=== PATIENT | female | born 1965 | race Caucasian/White ===

== ENCOUNTER 2017-10-13 13:48 | Emergency (ER) | payer OTHER, SELFPAY ==
[2017-10-13] VITALS (9 sets, daily range): BP systolic 174–233; BP diastolic 97–126; PULSE 67–96; RESP 12–20; TEMP 36.7–37.4; O2SAT 97–99
--- NOTE | 2017-10-13 14:30 | ED.GENADULT ---
HPI - General Adult <TATUM Bacon - Last Filed: 10/13/17 18:55> General Chief complaint: Hypertension Stated complaint: HIGH BP AND HEADACHES Time Seen by Provider: 10/13/17 14:10 Source: patient and family Mode of arrival: ambulatory Limitations: no limitations History of Present Illness HPI narrative: Patient presents with chief complaint of headache and high blood pressure. She has had a headache for the past week to 10 days on the left side of her head. She called her insurance nurse line, who suggested they take her blood pressure. She found it to be high and then came into the emergency department. Upon arrival blood pressure is 230s/130s. Eleven headache, she denies any dizziness, lightheadedness blurred vision, slurred speech confusion or stroke symptoms. She complains of occasional palpitations, but states that is not new. She denies any chest pain, swelling of her extremities, syncope or near syncope. She does state that she smokes every day and drinks a few alcoholic drinks every day. She does admit to psychosocial stress given that her son is currently addicted to heroin. Related Data Previous Rx's Medication Instructions Recorded metoprolol tartrate 25 mg PO BID #30 tab 10/13/17 Allergies Allergy/AdvReac Type Severity Reaction Status Date / Time antibiotic AdvReac Uncoded 10/13/17 15:05 Review of Systems <TATUM Bacon - Last Filed: 10/13/17 18:55> Review of Systems GENERAL: Denies chills, fatigue, malaise, fever, sweats. HEENT: Denies sinus pain, ear pain, sore throat, difficulty swallowing, dizziness. RESPIRATORY: Denies dyspnea, cough, wheezing, hemoptysis, sputum. CARDIOVASCULAR: Denies chest pain, palpitations, orthopnea, edema, GASTROINTESTINAL: Denies nausea, vomiting, abdominal pain, diarrhea, constipation, melena. : Denies dysuria, frequency, incontinence, hematuria, urinary retention. MUSCULOSKELETAL: denies weakness, joint pain, or bony pain SKIN: Denies rash, skin lesions, or other NEUROLOGIC: See HPI PSYCHIATRIC: No concerning psychosocial issues. 12 point review of systems is negative except for those stated above Exam <TATUM Bacon - Last Filed: 10/13/17 18:55> Narrative Exam Narrative: GENERAL: Well-nourished patient sitting in bed with at bedside. HEAD: Atraumatic. Normocephalic. No temporal or scalp tenderness. EYES: Pupils equal round and reactive. Extraocular motions intact. No scleral icterus. No injection or drainage. ENT: Nose without bleeding, purulent drainage or septal hematoma. Throat without erythema, tonsillar hypertrophy or exudate. Uvula midline. Airway patent. NECK: Trachea midline. No JVD or lymphadenopathy. Supple, nontender, no meningeal signs. CARDIOVASCULAR: Regular rate and rhythm without murmurs, gallops, or rubs. RESPIRATORY: Clear to auscultation. Breath sounds equal bilaterally. No wheezes, rales, or rhonchi. GASTROINTESTINAL: Abdomen soft, non-tender, nondistended. No hepato-splenomegaly, or palpable masses. No guarding. EXTREMITIES: No clubbing, cyanosis, or edema. No joint tenderness, effusion, or edema noted. BACK: Nontender without deformity or crepitance. No flank tenderness. NEURO: AOx3, speech is not slurred, stable gait, equal strength upper and lower extremities bilaterally. SKIN: No rash or erythema. Initial Vital Signs Initial Vital Signs: Vital Signs Temperature 99.4 F 10/13/17 14:02 Pulse Rate 93 H 10/13/17 14:02 Respiratory Rate 20 10/13/17 14:02 Blood Pressure 233/126 H 10/13/17 14:02 Pulse Oximetry 97 10/13/17 14:02 <Thien Ferreira DO - Last Filed: 10/14/17 09:27> Initial Vital Signs Initial Vital Signs: Vital Signs Temperature 99.4 F 10/13/17 14:02 Pulse Rate 93 H 10/13/17 14:02 Respiratory Rate 20 10/13/17 14:02 Blood Pressure 233/126 H 10/13/17 14:02 Pulse Oximetry 97 10/13/17 14:02 Course <TATUM Bacon - Last Filed: 10/13/17 18:55> Additional Information: A checked on the patient several times throughout her stay in the emergency department. She received 2 doses of IV metoprolol as well as IV labetalol. Once her blood pressure came down well with the IV labetalol, she was given p.o. metoprolol. She denied any stroke or heart attack symptoms or other stay. She had lab work completed. She had a head CT performed. Orders Ordered: Discontinued Medications Hydralazine HCl (Apresoline) 10 mg IV NOW ONE Stop: 10/13/17 16:10 Last Admin: 10/13/17 16:23 Dose: Hydrochlorothiazide (Hydrochlorothiazide) 25 mg PO NOW ONE Stop: 10/13/17 17:48 Sodium Chloride (Normal Saline 0.9%) 1,000 mls @ 1,000 mls/hr IV BOLUS ONE Stop: 10/13/17 15:40 Last Admin: 10/13/17 15:05 Dose: 1,000 mls/hr Ketorolac Tromethamine (Toradol) 30 mg IV NOW ONE Stop: 10/13/17 16:12 Last Admin: 10/13/17 16:25 Dose: 30 mg Labetalol HCl (Normodyne) 20 mg IV NOW ONE Stop: 10/13/17 16:20 Last Admin: 10/13/17 16:24 Dose: 20 mg Metoprolol Tartrate (Lopressor) 5 mg IV NOW ONE Stop: 10/13/17 14:44 Last Admin: 10/13/17 15:05 Dose: 5 mg Metoprolol Tartrate (Lopressor) 5 mg IV NOW ONE Stop: 10/13/17 15:40 Last Admin: 10/13/17 16:11 Dose: 5 mg Metoprolol Tartrate (Lopressor) 50 mg PO NOW ONE Stop: 10/13/17 17:02 Last Admin: 10/13/17 17:09 Dose: 50 mg Vital Signs - 8 hr 10/13/17 14:02 10/13/17 14:28 10/13/17 14:48 Temperature 99.4 F Pulse Rate 93 H 93 H 96 H Respiratory Rate 20 15 14 Blood Pressure 233/126 H Blood Pressure [Left Arm] 180/111 H 195/100 H Pulse Oximetry 97 98 97 10/13/17 15:55 10/13/17 15:57 10/13/17 16:17 Temperature 99.4 F Pulse Rate 75 75 74 Respiratory Rate 17 17 12 Blood Pressure 233/126 H Blood Pressure [Left Arm] 175/102 H 200/103 H Pulse Oximetry 99 99 98 10/13/17 16:34 10/13/17 17:05 10/13/17 18:08 Temperature 98.0 F Pulse Rate 73 75 67 Respiratory Rate 19 19 16 Blood Pressure Blood Pressure [Left Arm] 181/108 H 174/97 H 186/108 H Pulse Oximetry 98 97 97 <Thien Ferreira DO - Last Filed: 10/14/17 09:27> Orders Ordered: Discontinued Medications Hydralazine HCl (Apresoline) 10 mg IV NOW ONE Stop: 10/13/17 16:10 Last Admin: 10/13/17 16:23 Dose: Hydrochlorothiazide (Hydrochlorothiazide) 25 mg PO NOW ONE Stop: 10/13/17 17:48 Sodium Chloride (Normal Saline 0.9%) 1,000 mls @ 1,000 mls/hr IV BOLUS ONE Stop: 10/13/17 15:40 Last Admin: 10/13/17 15:05 Dose: 1,000 mls/hr Ketorolac Tromethamine (Toradol) 30 mg IV NOW ONE Stop: 10/13/17 16:12 Last Admin: 10/13/17 16:25 Dose: 30 mg Labetalol HCl (Normodyne) 20 mg IV NOW ONE Stop: 10/13/17 16:20 Last Admin: 10/13/17 16:24 Dose: 20 mg Metoprolol Tartrate (Lopressor) 5 mg IV NOW ONE Stop: 10/13/17 14:44 Last Admin: 10/13/17 15:05 Dose: 5 mg Metoprolol Tartrate (Lopressor) 5 mg IV NOW ONE Stop: 10/13/17 15:40 Last Admin: 10/13/17 16:11 Dose: 5 mg Metoprolol Tartrate (Lopressor) 50 mg PO NOW ONE Stop: 10/13/17 17:02 Last Admin: 10/13/17 17:09 Dose: 50 mg Vital Signs - 8 hr 10/13/17 14:02 10/13/17 14:28 10/13/17 14:48 Temperature 99.4 F Pulse Rate 93 H 93 H 96 H Respiratory Rate 20 15 14 Blood Pressure 233/126 H Blood Pressure [Left Arm] 180/111 H 195/100 H Pulse Oximetry 97 98 97 10/13/17 15:55 10/13/17 15:57 10/13/17 16:17 Temperature 99.4 F Pulse Rate 75 75 74 Respiratory Rate 17 17 12 Blood Pressure 233/126 H Blood Pressure [Left Arm] 175/102 H 200/103 H Pulse Oximetry 99 99 98 10/13/17 16:34 10/13/17 17:05 10/13/17 18:08 Temperature 98.0 F Pulse Rate 73 75 67 Respiratory Rate 19 19 16 Blood Pressure Blood Pressure [Left Arm] 181/108 H 174/97 H 186/108 H Pulse Oximetry 98 97 97 Medical Decision Making <Stephanie Manuel, [employer] - Last Filed: 10/13/17 18:55> MDM Narrative Medical decision making narrative: Patient presented with hypertension. She was treated with 2 doses of 5 mg of IV metoprolol. She was given 10 of labetalol IV. Her blood pressure was noted to decrease from 230s/130s to 190s/ 100-110. She no longer had a headache after her blood pressure was decreased and some Toradol. Given that her blood pressure dropped the ideal 15-20%, I did not want to become more aggressive regarding her blood pressure in the emergency department setting. Given that she is asymptomatic, I discharged her home on p.o. metoprolol. I instructed her to call her primary care physician tomorrow for follow-up. I also gave strict return precautions to the emergency department for any chest pain, shortness of breath, palpitations, stroke symptoms or further headache. Patient had no questions or concerns upon discharge. Lab Data Result diagrams: 10/13/17 14:15 10/13/17 14:15 Lab Results 10/13/17 10/13/17 10/13/17 Range/Units 14:15 14:15 14:15 WBC 10.7 (4.5-11.0) X10^3/uL RBC 4.85 (4.0-5.2) X10^6/uL Hgb 16.4 H (12.0-16.0) g/dL Hct 46.5 H (36-46) % MCV 95.9 (80-100) fL MCH 33.7 (26-34) PG MCHC 35.2 (30-36) % RDW 13.1 (11.6-14.8) % Plt Count 256 (150-400) X10^3/uL Neut % (Auto) 50.0 (50-75) % Lymph % (Auto) 37.9 (25-40) % Bucks % (Auto) 8.7 (3-14) % Eos % (Auto) 2.8 (2-4) % Baso % (Auto) 0.6 (0-2) % Neut # (Auto) 5300 (8082-7146) /uL PT 10.4 (10.1-12.7) SECONDS INR 1.0 (0.9-1.3) Sodium 141 (137-145) mmol/L Potassium 3.9 (3.4-5.1) mmol/L Chloride 102 (98-107) mmol/L Carbon Dioxide 29 (22-32) mmol/L BUN 14 (7-17) mg/dL Creatinine 0.70 (0.52-1.04) mg/dL Estimated GFR > 60.0 (>60) mL/min BUN/Creatinine Ratio 20.0 (6-22) Glucose 109 H (70-100) mg/dL Calcium 9.9 (8.4-10.2) mg/dL Total Bilirubin 0.5 (0.2-1.3) mg/dL AST 61 H (14-36) IU/L ALT 111 H (9-52) IU/L Alkaline Phosphatase 114 (38-126) U/L Total Creatine Kinase (30-135) U/L Troponin I (0.01-0.034) ng/mL Total Protein 7.9 (6.3-8.2) g/dL Albumin 4.6 (3.5-5.0) g/dL Globulin 3.3 (1.7-4.1) g/dL Albumin/Globulin Ratio 1.4 (1.0-2.8) /02/18 Range/Units 14:15 WBC (4.5-11.0) X10^3/uL RBC (4.0-5.2) X10^6/uL Hgb (12.0-16.0) g/dL Hct (36-46) % MCV (80-100) fL MCH (26-34) PG MCHC (30-36) % RDW (11.6-14.8) % Plt Count (150-400) X10^3/uL Neut % (Auto) (50-75) % Lymph % (Auto) (25-40) % Bucks % (Auto) (3-14) % Eos % (Auto) (2-4) % Baso % (Auto) (0-2) % Neut # (Auto) (1072-5045) /uL PT (10.1-12.7) SECONDS INR (0.9-1.3) Sodium (137-145) mmol/L Potassium (3.4-5.1) mmol/L Chloride (98-107) mmol/L Carbon Dioxide (22-32) mmol/L BUN (7-17) mg/dL Creatinine (0.52-1.04) mg/dL Estimated GFR (>60) mL/min BUN/Creatinine Ratio (6-22) Glucose (70-100) mg/dL Calcium (8.4-10.2) mg/dL Total Bilirubin (0.2-1.3) mg/dL AST (14-36) IU/L ALT (9-52) IU/L Alkaline Phosphatase (38-126) U/L Total Creatine Kinase 63 (30-135) U/L Troponin I < 0.012 (0.01-0.034) ng/mL Total Protein (6.3-8.2) g/dL Albumin (3.5-5.0) g/dL Globulin (1.7-4.1) g/dL Albumin/Globulin Ratio (1.0-2.8) Imaging Data CT scan - head: Radiologist's impression: View Report History Print [address] [address] [address] Scan Report Signed Patient: Radha Mcgee MR#: [id number] : 1965 Acct:[id number] Age/Sex: 52 / F Date of Service: 10/13/17 Loc: ED Accession Number: [id number] Procedure: CT head/brain wo con Ordering Provider: Stephanie [facility]: CT HEAD/BRAIN WO CON INDICATIONS: headache, htnsive TECHNIQUE: Noncontrast 4.5 mm thick angled axial sections acquired from the foramen magnum to the vertex, with coronal and sagittal reformats. For radiation dose reduction, the following was used: automated exposure control, adjustment of mA and/or kV according to patient size. COMPARISON: [facility], CT, CT-IVP, 04/12/2008, 11:06. FINDINGS: Image quality: Excellent. CSF spaces: Basal cisterns are patent. No extra-axial fluid collections. Ventricles are normal in size and shape. Brain: No midline shift. No intracranial masses or hemorrhage. Arreola-white matter interface is normal. Skull and face: Calvarium and visualized facial bones are intact, without suspicious lesions. Sinuses: Mastoid air cells are clear. Minimal paranasal sinus mucosal thickening. IMPRESSION: No acute intracranial abnormality. Dictated by: Vipin Ohara M.D. on 10/13/2017 at 15:37 Approved by: Vipin Ohara M.D. on 10/13/2017 at 15:41 ECG Data Attestation: I personally reviewed and interpreted this ECG as follows: Interpretation: Sinus rhythm. Ventricular rate 99. Noted to have PVC. No ST elevation or depression. <Thien Ferreira DO - Last Filed: 10/14/17 09:27> Lab Data Lab Results 10/13/17 10/13/17 10/13/17 Range/Units 14:15 14:15 14:15 WBC 10.7 (4.5-11.0) X10^3/uL RBC 4.85 (4.0-5.2) X10^6/uL Hgb 16.4 H (12.0-16.0) g/dL Hct 46.5 H (36-46) % MCV 95.9 (80-100) fL MCH 33.7 (26-34) PG MCHC 35.2 (30-36) % RDW 13.1 (11.6-14.8) % Plt Count 256 (150-400) X10^3/uL Neut % (Auto) 50.0 (50-75) % Lymph % (Auto) 37.9 (25-40) % Bucks % (Auto) 8.7 (3-14) % Eos % (Auto) 2.8 (2-4) % Baso % (Auto) 0.6 (0-2) % Neut # (Auto) 5300 (2230-2687) /uL PT 10.4 (10.1-12.7) SECONDS INR 1.0 (0.9-1.3) Sodium 141 (137-145) mmol/L Potassium 3.9 (3.4-5.1) mmol/L Chloride 102 (98-107) mmol/L Carbon Dioxide 29 (22-32) mmol/L BUN 14 (7-17) mg/dL Creatinine 0.70 (0.52-1.04) mg/dL Estimated GFR > 60.0 (>60) mL/min BUN/Creatinine Ratio 20.0 (6-22) Glucose 109 H (70-100) mg/dL Calcium 9.9 (8.4-10.2) mg/dL Total Bilirubin 0.5 (0.2-1.3) mg/dL AST 61 H (14-36) IU/L ALT 111 H (9-52) IU/L Alkaline Phosphatase 114 (38-126) U/L Total Creatine Kinase (30-135) U/L Troponin I (0.01-0.034) ng/mL Total Protein 7.9 (6.3-8.2) g/dL Albumin 4.6 (3.5-5.0) g/dL Globulin 3.3 (1.7-4.1) g/dL Albumin/Globulin Ratio 1.4 (1.0-2.8) 10/13/17 Range/Units 14:15 WBC (4.5-11.0) X10^3/uL RBC (4.0-5.2) X10^6/uL Hgb (12.0-16.0) g/dL Hct (36-46) % MCV (80-100) fL MCH (26-34) PG MCHC (30-36) % RDW (11.6-14.8) % Plt Count (150-400) X10^3/uL Neut % (Auto) (50-75) % Lymph % (Auto) (25-40) % Bucks % (Auto) (3-14) % Eos % (Auto) (2-4) % Baso % (Auto) (0-2) % Neut # (Auto) (0806-3842) /uL PT (10.1-12.7) SECONDS INR (0.9-1.3) Sodium (137-145) mmol/L Potassium (3.4-5.1) mmol/L Chloride (98-107) mmol/L Carbon Dioxide (22-32) mmol/L BUN (7-17) mg/dL Creatinine (0.52-1.04) mg/dL Estimated GFR (>60) mL/min BUN/Creatinine Ratio (6-22) Glucose (70-100) mg/dL Calcium (8.4-10.2) mg/dL Total Bilirubin (0.2-1.3) mg/dL AST (14-36) IU/L ALT (9-52) IU/L Alkaline Phosphatase (38-126) U/L Total Creatine Kinase 63 (30-135) U/L Troponin I < 0.012 (0.01-0.034) ng/mL Total Protein (6.3-8.2) g/dL Albumin (3.5-5.0) g/dL Globulin (1.7-4.1) g/dL Albumin/Globulin Ratio (1.0-2.8) Discharge Plan Departure Patient Disposition: Home, Self-Care Clinical Impression: Hypertension Discharge Date/Time: 10/13/17 18:32 Interventions: ED Discharge Assessment Last Done: 10/13/17 18:32 Instructions: DI for High Blood Pressure Activity Restrictions/Additional Instructions: I am starting you on a blood pressure medication twice a day. Come back to the emergency department given the chest pain shortness of breath or stroke symptoms including confusion or slurred speech. I would like you to follow up with primary doctor tomorrow. Come back to the emergency department if you need 2. Prescriptions: New metoprolol tartrate 25 mg tablet 25 mg PO BID Qty: 30 RF: 0 Referrals: Silvano Apple MD [Primary Care Provider] - Stand Alone Forms: Work/School Restrictions <Thien Ferreira DO - Last Filed: 10/14/17 09:27> [facility] ED Attending Michael Attestation: I was immediately available in the department for consultation. Documentation has been reviewed. I agree with assessment and plan.
--- NOTE | 2017-10-13 14:39 | DI.CT.S_ITS ---
PROCEDURE: CT HEAD/BRAIN WO CON INDICATIONS: headache, htnsive TECHNIQUE: Noncontrast 4.5 mm thick angled axial sections acquired from the foramen magnum to the vertex, with coronal and sagittal reformats. For radiation dose reduction, the following was used: automated exposure control, adjustment of mA and/or kV according to patient size. COMPARISON: [facility], CT, CT-IVP, 04/12/2008, 11:06. FINDINGS: Image quality: Excellent. CSF spaces: Basal cisterns are patent. No extra-axial fluid collections. Ventricles are normal in size and shape. Brain: No midline shift. No intracranial masses or hemorrhage. Arreola-white matter interface is normal. Skull and face: Calvarium and visualized facial bones are intact, without suspicious lesions. Sinuses: Mastoid air cells are clear. Minimal paranasal sinus mucosal thickening. IMPRESSION: No acute intracranial abnormality. Dictated by: Vipin Ohara M.D. on 10/13/2017 at 15:37 Approved by: Vipin Ohara M.D. on 10/13/2017 at 15:41
[2017-10-13 14:50] LABS: Add Manual Diff / Slide Review NO; Basophils Percent Auto 0.6 % (0-2); Eosinophils Percent Auto 2.8 % (2-4); Hematocrit 46.5 % (36-46); Hemoglobin 16.4 g/dL (12.0-16.0); Lymphocytes Percent Auto 37.9 % (25-40); Mean Corpuscular HGB Conc 35.2 % (30-36); Mean Corpuscular Hemoglobin 33.7 PG (26-34); Mean Corpuscular Volume 95.9 fL (80-100); Monocytes Percent Auto 8.7 % (3-14); Neutrophils Absolute Auto 5300 /uL (3000-5900); Platelet Count 256 X10^3/uL (150-400); Prothrombin Time 10.4 SECONDS (10.1-12.7); Red Blood Cell Count 4.85 X10^6/uL (4.0-5.2); Red Cell Distribution Width 13.1 % (11.6-14.8); White Blood Cell Count 10.7 X10^3/uL (4.5-11.0)
[2017-10-13 14:56] LABS: Creatine Kinase 63 U/L (30-135)
[2017-10-13 14:58] LABS: Alanine Aminotransferase 111 IU/L (9-52); Albumin 4.6 g/dL (3.5-5.0); Albumin Globulin Ratio 1.4 (1.0-2.8); Alkaline Phosphatase 114 U/L (38-126); Aspartate Aminotransferase 61 IU/L (14-36); Bilirubin Total 0.5 mg/dL (0.2-1.3); Blood Urea Nitrogen 14 mg/dL (7-17); Calcium 9.9 mg/dL (8.4-10.2); Carbon Dioxide 29 mmol/L (22-32); Chloride 102 mmol/L (98-107); Estimated Glomerular Filt Rate > 60.0 mL/min (>60); Globulin 3.3 g/dL (1.7-4.1); Glucose 109 mg/dL (70-100); HEMOLYSIS 30 (0-50); Potassium 3.9 mmol/L (3.4-5.1); Sodium 141 mmol/L (137-145); Total Protein 7.9 g/dL (6.3-8.2)
[2017-10-13] MEDS: METOPROLOL TARTRATE 5 MG/5 ML INJ IV ×2 (15:05→16:11)
[2017-10-13] MEDS: SODIUM CHLORIDE 0.9% 1,000 ML 1000 ML IV (15:05)
[2017-10-13 15:10] LABS: Troponin I < 0.012 ng/mL (0.01-0.034)
--- NOTE | 2017-10-13 16:02 | PC.NURSE ---
Pt states Left sided DAMIAN 3/10 pain since 10/04/17, took one Aspirin today, called nurse line who told her to take bp and had an elevated reading. Pt states may have HTN but has never been prescribed medication for it. Denies CP or SOB.
[2017-10-13] MEDS: LABETALOL 100 MG/20ML MDV 20 MG IV (16:24)
[2017-10-13] MEDS: KETOROLAC 60 MG/2 ML VIAL 30 MG IV (16:25)
[2017-10-13] MEDS: METOPROLOL 50 MG TABLET PO (17:09)
--- NOTE | 2017-10-13 18:05 | ED_ITS ---
HPI - General Adult <TATUM Bacon - Last Filed: 10/13/17 18:55> General Chief complaint: Hypertension Stated complaint: HIGH BP AND HEADACHES Time Seen by Provider: 10/13/17 14:10 Source: patient and family Mode of arrival: ambulatory Limitations: no limitations History of Present Illness HPI narrative: Patient presents with chief complaint of headache and high blood pressure. She has had a headache for the past week to 10 days on the left side of her head. She called her insurance nurse line, who suggested they take her blood pressure. She found it to be high and then came into the emergency department. Upon arrival blood pressure is 230s/130s. Eleven headache, she denies any dizziness, lightheadedness blurred vision, slurred speech confusion or stroke symptoms. She complains of occasional palpitations, but states that is not new. She denies any chest pain, swelling of her extremities, syncope or near syncope. She does state that she smokes every day and drinks a few alcoholic drinks every day. She does admit to psychosocial stress given that her son is currently addicted to heroin. Related Data Previous Rx's Medication Instructions Recorded metoprolol tartrate 25 mg PO BID #30 tab 10/13/17 Allergies Allergy/AdvReac Type Severity Reaction Status Date / Time antibiotic AdvReac Uncoded 10/13/17 15:05 Review of Systems <TATUM Bacon - Last Filed: 10/13/17 18:55> Review of Systems GENERAL: Denies chills, fatigue, malaise, fever, sweats. HEENT: Denies sinus pain, ear pain, sore throat, difficulty swallowing, dizziness. RESPIRATORY: Denies dyspnea, cough, wheezing, hemoptysis, sputum. CARDIOVASCULAR: Denies chest pain, palpitations, orthopnea, edema, GASTROINTESTINAL: Denies nausea, vomiting, abdominal pain, diarrhea, constipation, melena. : Denies dysuria, frequency, incontinence, hematuria, urinary retention. MUSCULOSKELETAL: denies weakness, joint pain, or bony pain SKIN: Denies rash, skin lesions, or other NEUROLOGIC: See HPI PSYCHIATRIC: No concerning psychosocial issues. 12 point review of systems is negative except for those stated above Exam <TATUM Bacon - Last Filed: 10/13/17 18:55> Narrative Exam Narrative: GENERAL: Well-nourished patient sitting in bed with at bedside. HEAD: Atraumatic. Normocephalic. No temporal or scalp tenderness. EYES: Pupils equal round and reactive. Extraocular motions intact. No scleral icterus. No injection or drainage. ENT: Nose without bleeding, purulent drainage or septal hematoma. Throat without erythema, tonsillar hypertrophy or exudate. Uvula midline. Airway patent. NECK: Trachea midline. No JVD or lymphadenopathy. Supple, nontender, no meningeal signs. CARDIOVASCULAR: Regular rate and rhythm without murmurs, gallops, or rubs. RESPIRATORY: Clear to auscultation. Breath sounds equal bilaterally. No wheezes , rales, or rhonchi. GASTROINTESTINAL: Abdomen soft, non-tender, nondistended. No hepato-splenomegaly , or palpable masses. No guarding. EXTREMITIES: No clubbing, cyanosis, or edema. No joint tenderness, effusion, or edema noted. BACK: Nontender without deformity or crepitance. No flank tenderness. NEURO: AOx3, speech is not slurred, stable gait, equal strength upper and lower extremities bilaterally. SKIN: No rash or erythema. Initial Vital Signs Initial Vital Signs: Vital Signs Temperature 99.4 F 10/13/17 14:02 Pulse Rate 93 H 10/13/17 14:02 Respiratory Rate 20 10/13/17 14:02 Blood Pressure 233/126 H 10/13/17 14:02 Pulse Oximetry 97 10/13/17 14:02 <Thien Ferreira DO - Last Filed: 10/14/17 09:27> Initial Vital Signs Initial Vital Signs: Vital Signs Temperature 99.4 F 10/13/17 14:02 Pulse Rate 93 H 10/13/17 14:02 Respiratory Rate 20 10/13/17 14:02 Blood Pressure 233/126 H 10/13/17 14:02 Pulse Oximetry 97 10/13/17 14:02 Course <TATUM Bacon - Last Filed: 10/13/17 18:55> Additional Information: A checked on the patient several times throughout her stay in the emergency department. She received 2 doses of IV metoprolol as well as IV labetalol. Once her blood pressure came down well with the IV labetalol, she was given p.o. metoprolol. She denied any stroke or heart attack symptoms or other stay. She had lab work completed. She had a head CT performed. Orders Ordered: Discontinued Medications Hydralazine HCl (Apresoline) 10 mg IV NOW ONE Stop: 10/13/17 16:10 Last Admin: 10/13/17 16:23 Dose: Hydrochlorothiazide (Hydrochlorothiazide) 25 mg PO NOW ONE Stop: 10/13/17 17:48 Sodium Chloride (Normal Saline 0.9%) 1,000 mls @ 1,000 mls/hr IV BOLUS ONE Stop: 10/13/17 15:40 Last Admin: 10/13/17 15:05 Dose: 1,000 mls/hr Ketorolac Tromethamine (Toradol) 30 mg IV NOW ONE Stop: 10/13/17 16:12 Last Admin: 10/13/17 16:25 Dose: 30 mg Labetalol HCl (Normodyne) 20 mg IV NOW ONE Stop: 10/13/17 16:20 Last Admin: 10/13/17 16:24 Dose: 20 mg Metoprolol Tartrate (Lopressor) 5 mg IV NOW ONE Stop: 10/13/17 14:44 Last Admin: 10/13/17 15:05 Dose: 5 mg Metoprolol Tartrate (Lopressor) 5 mg IV NOW ONE Stop: 10/13/17 15:40 Last Admin: 10/13/17 16:11 Dose: 5 mg Metoprolol Tartrate (Lopressor) 50 mg PO NOW ONE Stop: 10/13/17 17:02 Last Admin: 10/13/17 17:09 Dose: 50 mg Vital Signs - 8 hr 10/13/17 14:02 10/13/17 14:28 10/13/17 14:48 Temperature 99.4 F Pulse Rate 93 H 93 H 96 H Respiratory Rate 20 15 14 Blood Pressure 233/126 H Blood Pressure [Left Arm] 180/111 H 195/100 H Pulse Oximetry 97 98 97 10/13/17 15:55 10/13/17 15:57 10/13/17 16:17 Temperature 99.4 F Pulse Rate 75 75 74 Respiratory Rate 17 17 12 Blood Pressure 233/126 H Blood Pressure [Left Arm] 175/102 H 200/103 H Pulse Oximetry 99 99 98 10/13/17 16:34 10/13/17 17:05 10/13/17 18:08 Temperature 98.0 F Pulse Rate 73 75 67 Respiratory Rate 19 19 16 Blood Pressure Blood Pressure [Left Arm] 181/108 H 174/97 H 186/108 H Pulse Oximetry 98 97 97 <Thien Ferreira DO - Last Filed: 10/14/17 09:27> Orders Ordered: Discontinued Medications Hydralazine HCl (Apresoline) 10 mg IV NOW ONE Stop: 10/13/17 16:10 Last Admin: 10/13/17 16:23 Dose: Hydrochlorothiazide (Hydrochlorothiazide) 25 mg PO NOW ONE Stop: 10/13/17 17:48 Sodium Chloride (Normal Saline 0.9%) 1,000 mls @ 1,000 mls/hr IV BOLUS ONE Stop: 10/13/17 15:40 Last Admin: 10/13/17 15:05 Dose: 1,000 mls/hr Ketorolac Tromethamine (Toradol) 30 mg IV NOW ONE Stop: 10/13/17 16:12 Last Admin: 10/13/17 16:25 Dose: 30 mg Labetalol HCl (Normodyne) 20 mg IV NOW ONE Stop: 10/13/17 16:20 Last Admin: 10/13/17 16:24 Dose: 20 mg Metoprolol Tartrate (Lopressor) 5 mg IV NOW ONE Stop: 10/13/17 14:44 Last Admin: 10/13/17 15:05 Dose: 5 mg Metoprolol Tartrate (Lopressor) 5 mg IV NOW ONE Stop: 10/13/17 15:40 Last Admin: 10/13/17 16:11 Dose: 5 mg Metoprolol Tartrate (Lopressor) 50 mg PO NOW ONE Stop: 10/13/17 17:02 Last Admin: 10/13/17 17:09 Dose: 50 mg Vital Signs - 8 hr 10/13/17 14:02 10/13/17 14:28 10/13/17 14:48 Temperature 99.4 F Pulse Rate 93 H 93 H 96 H Respiratory Rate 20 15 14 Blood Pressure 233/126 H Blood Pressure [Left Arm] 180/111 H 195/100 H Pulse Oximetry 97 98 97 10/13/17 15:55 10/13/17 15:57 10/13/17 16:17 Temperature 99.4 F Pulse Rate 75 75 74 Respiratory Rate 17 17 12 Blood Pressure 233/126 H Blood Pressure [Left Arm] 175/102 H 200/103 H Pulse Oximetry 99 99 98 10/13/17 16:34 10/13/17 17:05 10/13/17 18:08 Temperature 98.0 F Pulse Rate 73 75 67 Respiratory Rate 19 19 16 Blood Pressure Blood Pressure [Left Arm] 181/108 H 174/97 H 186/108 H Pulse Oximetry 98 97 97 Medical Decision Making <Stephanie Manuel, AP PROCESSOR-BC - Last Filed: 10/13/17 18:55> MDM Narrative Medical decision making narrative: Patient presented with hypertension. She was treated with 2 doses of 5 mg of IV metoprolol. She was given 10 of labetalol IV. Her blood pressure was noted to decrease from 230s/130s to 190s/ 100-110. She no longer had a headache after her blood pressure was decreased and some Toradol. Given that her blood pressure dropped the ideal 15-20%, I did not want to become more aggressive regarding her blood pressure in the emergency department setting. Given that she is asymptomatic, I discharged her home on p.o. metoprolol. I instructed her to call her primary care physician tomorrow for follow-up. I also gave strict return precautions to the emergency department for any chest pain, shortness of breath, palpitations, stroke symptoms or further headache. Patient had no questions or concerns upon discharge. Lab Data Result diagrams: 10/13/17 14:15 10/13/17 14:15 Lab Results 10/13/17 10/13/17 10/13/17 Range/Units 14:15 14:15 14:15 WBC 10.7 (4.5-11.0) X10^3/uL RBC 4.85 (4.0-5.2) X10^6/uL Hgb 16.4 H (12.0-16.0) g/dL Hct 46.5 H (36-46) % MCV 95.9 (80-100) fL MCH 33.7 (26-34) PG MCHC 35.2 (30-36) % RDW 13.1 (11.6-14.8) % Plt Count 256 (150-400) X10^3/uL Neut % (Auto) 50.0 (50-75) % Lymph % (Auto) 37.9 (25-40) % [place] % (Auto) 8.7 (3-14) % Eos % (Auto) 2.8 (2-4) % Baso % (Auto) 0.6 (0-2) % Neut # (Auto) 5300 (2346-6302) /uL PT 10.4 (10.1-12.7) SECONDS INR 1.0 (0.9-1.3) Sodium 141 (137-145) mmol/L Potassium 3.9 (3.4-5.1) mmol/L Chloride 102 (98-107) mmol/L Carbon Dioxide 29 (22-32) mmol/L BUN 14 (7-17) mg/dL Creatinine 0.70 (0.52-1.04) mg/dL Estimated GFR > 60.0 (>60) mL/min BUN/Creatinine Ratio 20.0 (6-22) Glucose 109 H (70-100) mg/dL Calcium 9.9 (8.4-10.2) mg/dL Total Bilirubin 0.5 (0.2-1.3) mg/dL AST 61 H (14-36) IU/L ALT 111 H (9-52) IU/L Alkaline Phosphatase 114 (38-126) U/L Total Creatine Kinase (30-135) U/L Troponin I (0.01-0.034) ng/mL Total Protein 7.9 (6.3-8.2) g/dL Albumin 4.6 (3.5-5.0) g/dL Globulin 3.3 (1.7-4.1) g/dL Albumin/Globulin Ratio 1.4 (1.0-2.8) /02/18 Range/Units 14:15 WBC (4.5-11.0) X10^3/uL RBC (4.0-5.2) X10^6/uL Hgb (12.0-16.0) g/dL Hct (36-46) % MCV (80-100) fL MCH (26-34) PG MCHC (30-36) % RDW (11.6-14.8) % Plt Count (150-400) X10^3/uL Neut % (Auto) (50-75) % Lymph % (Auto) (25-40) % [place] % (Auto) (3-14) % Eos % (Auto) (2-4) % Baso % (Auto) (0-2) % Neut # (Auto) (8511-1112) /uL PT (10.1-12.7) SECONDS INR (0.9-1.3) Sodium (137-145) mmol/L Potassium (3.4-5.1) mmol/L Chloride (98-107) mmol/L Carbon Dioxide (22-32) mmol/L BUN (7-17) mg/dL Creatinine (0.52-1.04) mg/dL Estimated GFR (>60) mL/min BUN/Creatinine Ratio (6-22) Glucose (70-100) mg/dL Calcium (8.4-10.2) mg/dL Total Bilirubin (0.2-1.3) mg/dL AST (14-36) IU/L ALT (9-52) IU/L Alkaline Phosphatase (38-126) U/L Total Creatine Kinase 63 (30-135) U/L Troponin I < 0.012 (0.01-0.034) ng/mL Total Protein (6.3-8.2) g/dL Albumin (3.5-5.0) g/dL Globulin (1.7-4.1) g/dL Albumin/Globulin Ratio (1.0-2.8) Imaging Data CT scan - head: Radiologist's impression: View Report History Print [address] [id number] [address] Scan Report Signed Patient: Radha Mcgee MR#: [id number] : 1965 Acct:[id number] Age/Sex: 52 / F Date of Service: 10/13/17 Loc: ED Accession Number: [id number] Procedure: CT head/brain wo con Ordering Provider: Stephanie Manuel [facility] PROC[facility]: CT HEAD/BRAIN WO CON INDICATIONS: headache, htnsive TECHNIQUE: Noncontrast 4.5 mm thick angled axial sections acquired from the foramen magnum to the vertex, with coronal and sagittal reformats. For radiation dose reduction, the following was used: automated exposure control, adjustment of mA and/or kV according to patient size. COMPARISON: [facility], CT, CT-IVP, 04/12/2008, 11:06. FINDINGS: Image quality: Excellent. CSF spaces: Basal cisterns are patent. No extra-axial fluid collections. Ventricles are normal in size and shape. Brain: No midline shift. No intracranial masses or hemorrhage. [place]reola-white matter interface is normal. Skull and face: Calvarium and visualized facial bones are intact, without suspicious lesions. Sinuses: Mastoid air cells are clear. Minimal paranasal sinus mucosal thickening. IMPRESSION: No acute intracranial abnormality. Dictated by: Vipin Ohara M.D. on 10/13/2017 at 15:37 Approved by: Vipin Ohara M.D. on 10/13/2017 at 15:41 ECG Data Attestation: I personally reviewed and interpreted this ECG as follows: Interpretation: Sinus rhythm. Ventricular rate 99. Noted to have PVC. No ST elevation or depression. <Thien Ferreira DO - Last Filed: 10/14/17 09:27> Lab Data Lab Results 10/13/17 10/13/17 10/13/17 Range/Units 14:15 14:15 14:15 WBC 10.7 (4.5-11.0) X10^3/uL RBC 4.85 (4.0-5.2) X10^6/uL Hgb 16.4 H (12.0-16.0) g/dL Hct 46.5 H (36-46) % MCV 95.9 (80-100) fL MCH 33.7 (26-34) PG MCHC 35.2 (30-36) % RDW 13.1 (11.6-14.8) % Plt Count 256 (150-400) X10^3/uL Neut % (Auto) 50.0 (50-75) % Lymph % (Auto) 37.9 (25-40) % [place] % (Auto) 8.7 (3-14) % Eos % (Auto) 2.8 (2-4) % Baso % (Auto) 0.6 (0-2) % Neut # (Auto) 5300 (7453-6470) /uL PT 10.4 (10.1-12.7) SECONDS INR 1.0 (0.9-1.3) Sodium 141 (137-145) mmol/L Potassium 3.9 (3.4-5.1) mmol/L Chloride 102 (98-107) mmol/L Carbon Dioxide 29 (22-32) mmol/L BUN 14 (7-17) mg/dL Creatinine 0.70 (0.52-1.04) mg/dL Estimated GFR > 60.0 (>60) mL/min BUN/Creatinine Ratio 20.0 (6-22) Glucose 109 H (70-100) mg/dL Calcium 9.9 (8.4-10.2) mg/dL Total Bilirubin 0.5 (0.2-1.3) mg/dL AST 61 H (14-36) IU/L ALT 111 H (9-52) IU/L Alkaline Phosphatase 114 (38-126) U/L Total Creatine Kinase (30-135) U/L Troponin I (0.01-0.034) ng/mL Total Protein 7.9 (6.3-8.2) g/dL Albumin 4.6 (3.5-5.0) g/dL Globulin 3.3 (1.7-4.1) g/dL Albumin/Globulin Ratio 1.4 (1.0-2.8) 10/13/17 Range/Units 14:15 WBC (4.5-11.0) X10^3/uL RBC (4.0-5.2) X10^6/uL Hgb (12.0-16.0) g/dL Hct (36-46) % MCV (80-100) fL MCH (26-34) PG MCHC (30-36) % RDW (11.6-14.8) % Plt Count (150-400) X10^3/uL Neut % (Auto) (50-75) % Lymph % (Auto) (25-40) % [place] % (Auto) (3-14) % Eos % (Auto) (2-4) % Baso % (Auto) (0-2) % Neut # (Auto) (1084-1099) /uL PT (10.1-12.7) SECONDS INR (0.9-1.3) Sodium (137-145) mmol/L Potassium (3.4-5.1) mmol/L Chloride (98-107) mmol/L Carbon Dioxide (22-32) mmol/L BUN (7-17) mg/dL Creatinine (0.52-1.04) mg/dL Estimated GFR (>60) mL/min BUN/Creatinine Ratio (6-22) Glucose (70-100) mg/dL Calcium (8.4-10.2) mg/dL Total Bilirubin (0.2-1.3) mg/dL AST (14-36) IU/L ALT (9-52) IU/L Alkaline Phosphatase (38-126) U/L Total Creatine Kinase 63 (30-135) U/L Troponin I < 0.012 (0.01-0.034) ng/mL Total Protein (6.3-8.2) g/dL Albumin (3.5-5.0) g/dL Globulin (1.7-4.1) g/dL Albumin/Globulin Ratio (1.0-2.8) Discharge Plan Departure Patient Disposition: Home, Self-Care Clinical Impression: Hypertension Discharge Date/Time: 10/13/17 18:32 Interventions: ED Discharge Assessment Last Done: 10/13/17 18:32 Instructions: DI for High Blood Pressure Activity Restrictions/Additional Instructions: I am starting you on a blood pressure medication twice a day. Come back to the emergency department given the chest pain shortness of breath or stroke symptoms including confusion or slurred speech. I would like you to follow up with primary doctor tomorrow. Come back to the emergency department if you need 2. Prescriptions: New metoprolol tartrate 25 mg tablet 25 mg PO BID Qty: 30 RF: 0 Referrals: Silvano Apple MD [Primary Care Provider] - Stand Alone Forms: Work/School Restrictions <Thien Ferreira DO - Last Filed: 10/14/17 09:27> [facility] ED Attending Michael Attestation: I was immediately available in the department for consultation. Documentation has been reviewed. I agree with assessment and plan.
== END 2017-10-13 18:32 | disposition home or self-care (01) ==
PROVIDERS: Emergency Provider Nurse Practitioner Family; Family Provider Family Medicine; PCP Family Medicine
DX: I10 Essential (primary) hypertension (principal); R51 Headache
CPT/HCPCS: 36591; 70450; 80053; 82550; 82553; 84484; 85025; 85610; 93005; 93010; 93041; 96361; 96374; 96375; 96376; 99284; 99285; J1885

== ENCOUNTER 2019-02-20 13:58 | Day surgery (SDC) | payer OTHER, SELFPAY ==
--- NOTE | 2019-02-20 07:43 | PM.OP.ENDO ---
Operative Date/Time/Diagnoses Date of procedure: 02/20/19 Time of procedure: 14:38 Pre-op diagnosis: 1. Family history of colon polyps 2. Colon cancer screening 3. Uncontrolled hypertension, ASA Class 3 Post-op diagnosis: other (1. Normal colonoscopy) Procedure & Clinicians Study performed: Colonoscopy Same procedure as scheduled: Yes Indications: 1. Family history of colon polyps 2. Screening for colon cancer 3. Uncontrolled hypertension, ASA class 3 Surgeon: Latasha Mcmanus Procedure Notes SCOAP/Timeout: 14:47 Procedure in detail: ENDOSCOPIST: Latasha Mcmanus MD Sedation RN: Cheo Rdz RN Sedation start time: 14:48 Sedation end time: 15;17 PROCEDURE: Colonoscopy INDICATIONS: 1. Family history of colon polyps 2. Screening for colon cancer 3. Hypertension, much improved today after taking home medications, 141/95. MEDICATION: Levsin 0.125 mg sublingual, incremental doses of Versed and fentanyl until appropriate level sedation achieved. ASA CLASS: 3 CECAL WITHDRAWAL TIME: COMPLICATIONS: None. EXTENT OF PROCEDURE: Cecum. QUALITY OF PREP: Good with portions of liquid stool. PROCEDURE: Prior to insertion of the colonoscope, a digital rectal examination was accomplished with circumferential palpation of the distal rectal mucosa without significant findings being noted. The high-definition colonoscope was passed into the rectum in the usual fashion and advanced over to the cecum without difficulty. The ileocecal valve, appendiceal stoma, and medial wall all could be inspected and no abnormalities were seen. ASCENDING COLON: As the colonoscope was withdrawn, care was taken to expose and inspect the haustral folds and no abnormalities were seen. HEPATIC FLEXURE: Normal no polyps, diverticula or other abnormalities. TRANSVERSE COLON: Normal no polyps, diverticula or other abnormalities. DESCENDING COLON: Normal no polyps, diverticula or other abnormalities. SIGMOID COLON: Normal no polyps, diverticula or other abnormalities. RECTUM: Normal. J maneuver was produced. There was no significant perianal disease. The J maneuver was broken. The remainder of the rectum was inspected and there was no external hemorrhoid disease. The scope was withdrawn. IMPRESSION: 1. Normal colonoscopy PLAN: 1. Secondary to family history, repeat colonoscopy in 5 years. The possibility of a missed lesion including a malignancy has been discussed with the patient previously. Potential alarm symptoms have been discussed and should be reported immediately. Scope withdrawal time: 7 minutes Sedation minutes: 20 Specimen(s): none sent Complications: none Impression: Normal colonoscopy Post-procedure Recommendations: Colonscopy in 5 years Follow up: as needed Disposition: PACU
[2019-02-20 14:30] VITALS: BMI 32.0
[2019-02-20 14:34] VITALS: BP 141/95; PULSE 107; RESP 18; TEMP 36; O2SAT 97
[2019-02-20] MEDS: SODIUM CHLORIDE 0.9% 1,000 ML 200 ML IV (14:42)
[2019-02-20] MEDS: fentaNYL 250 MCG/5 ML INJ IV (15:21)
[2019-02-20] MEDS: MIDAZOLAM 5 MG/5 ML VIAL IV (15:21)
[2019-02-20 15:25] VITALS: BP 115/74; PULSE 92; RESP 16; TEMP 36.6; O2SAT 98
--- NOTE | 2019-02-20 15:28 | SUR.PHASEII ---
Drive through, pt on monitor till 30 minute brittani. Wide awake and sitting straight up talking with OR nurse Cheo.
[2019-02-20 15:29] VITALS: PULSE 87; RESP 14; O2SAT 97
--- NOTE | 2019-02-20 15:38 | SUR.PHASEII ---
Stable phase 2, report to Arnulfo.
[2019-02-20 15:43] VITALS: BP 109/79; PULSE 84; RESP 16; TEMP 36.4; O2SAT 97
== END 2019-02-20 16:03 | disposition home or self-care (01) ==
PROVIDERS: Family Provider Family Medicine; PCP Family Medicine; Visit Provider Student in an Organized Health Care Education/Training Program
PROC: 0DJD8ZZ Inspection of Lower Intestinal Tract, Via Natural or Artificial Opening Endoscopic (ICD-10-PCS; CPT 45378; principal; 2019-02-20 15:00)
DX: Z12.11 Encounter for screening for malignant neoplasm of colon (principal); I10 Essential (primary) hypertension
CPT/HCPCS: 45378; J2250; J3010

== ENCOUNTER 2019-06-02 11:01 | Emergency (ER) | payer OTHER, SELFPAY ==
[2019-06-02 11:10] VITALS: BP 225/105; PULSE 83; RESP 13; TEMP 36.4; O2SAT 98
--- NOTE | 2019-06-02 11:12 | DI.RAD.S_ITS ---
PROCEDURE: XR RIBS RT MIN 3V W CXR 1V INDICATIONS: right right pain after cough. TECHNIQUE: 2 views of the right ribs were acquired, along with a single view chest. COMPARISON: None. FINDINGS: Surgical changes and devices: None. Bones and chest wall: No fractures or dislocations. No suspicious bony lesions. Overlying soft tissues appear unremarkable. Lungs and pleura: No pleural effusions or pneumothorax. Lungs appear clear. Mediastinum: Mediastinal contours appear normal. Heart size is normal. IMPRESSION: No displaced rib fractures visualized. Dictated by: Briana Martin M.D. on 06/02/2019 at 12:03 Approved by: Briana Martin M.D. on 06/02/2019 at 12:04
--- NOTE | 2019-06-02 11:17 | ED.CHESTPAIN ---
HPI - Chest Pain <VIDYA Bacon-BC - Last Filed: 06/02/19 15:28> General Chief Complaint: Chest Pain Stated Complaint: PAIN/NUMBNESS IN RIBS Time Seen by Provider: 06/02/19 11:12 Source: patient Mode of arrival: Ambulatory Limitations: no limitations History of Present Illness HPI narrative: The patient is a 53-year-old female who presents with a chief complaint of right-sided rib pain. She states that she has been coughing for the past several days, saw a primary care provider who diagnosed her with a sinus infection and started her on antibiotics. She states on Saturday she coughs so hard she has sudden pain in the right side of her ribs. She states it feels painful and numb at times. She has taken ibuprofen for it and it has helped. She states that her primary care provider sent in an x-ray but they couldn't ?figure out how to get the order is so she checked into the emergency department. She denies any fevers or shortness of breath. She denies any rashes. She states it radiates around her entire lower right rib area. Of note the patient is very hypertensive upon checking into the emergency department. She is emphatic that she is not here for her blood pressure and does not want that addressed. Related Data Home Medications Medication Instructions Recorded Confirmed lisinopril 20 mg PO DAILY 02/20/19 02/20/19 metoprolol tartrate 100 mg PO BID 02/20/19 02/20/19 Allergies Allergy/AdvReac Type Severity Reaction Status Date / Time antibiotic AdvReac Mild Uncoded 02/20/19 14:24 Review of Systems <DELMY Bacon - Last Filed: 06/02/19 15:28> Review of Systems Narrative: GENERAL: Denies chills, fatigue, malaise, fever, sweats. HEENT: Denies sinus pain, ear pain, sore throat, difficulty swallowing, dizziness. RESPIRATORY: See HPI CARDIOVASCULAR: Denies chest pain, palpitations, orthopnea, edema, GASTROINTESTINAL: Denies nausea, vomiting, abdominal pain, diarrhea, constipation, melena. : Denies dysuria, frequency, incontinence, hematuria, urinary retention. MUSCULOSKELETAL: denies weakness, joint pain, or bony pain SKIN: Denies rash, skin lesions, or other NEUROLOGIC: Denies weakness, headache, numbness, change in speech, confusion, seizures, incoordination. PSYCHIATRIC: No concerning psychosocial issues. 12 point review of systems is negative except for those stated above Patient History <Stephanie MontillaTATUM marlow - Last Filed: 06/02/19 15:28> Social History household members: significant other Smoking Status: Current every day smoker Smoking Status: Current every day smoker alcohol intake frequency: 3 or more drinks per day Substance Use Type: does not use Exam <Stephanie MontillaTATUM marlow - Last Filed: 06/02/19 15:28> Narrative Exam Narrative: GENERAL: This is a well-nourished, well-developed patient, no acute distress HEAD: Atraumatic. Normocephalic. No temporal or scalp tenderness. EYES: Pupils equal round and reactive. Extraocular motions intact. No scleral icterus. No injection or drainage. ENT: Nose without bleeding, purulent drainage or septal hematoma. Throat without erythema, tonsillar hypertrophy or exudate. Uvula midline. Airway patent. NECK: Trachea midline. No JVD or lymphadenopathy. Supple, nontender, no meningeal signs. CARDIOVASCULAR: Regular rate and rhythm RESPIRATORY: Coarse bilaterally to auscultation. Breath sounds equal bilaterally. No wheezes, rales, or rhonchi. Occasional very coarse sounding cough. Pain to palpation left lateral lower ribs. Pain to anterior posterior chest wall compression and lateral chest wall compression. GASTROINTESTINAL: Abdomen soft, non-tender, nondistended. No hepato-splenomegaly, or palpable masses. No guarding. EXTREMITIES: No clubbing, cyanosis, or edema. No joint tenderness, effusion, or edema noted. BACK: Nontender without deformity or crepitance. No flank tenderness. NEURO: AOx3. SKIN: No rash or erythema on visible skin. No rash or visual abnormality right lower ribs. Initial Vital Signs Initial Vital Signs: Vital Signs Temperature 97.6 F 06/02/19 11:10 Pulse Rate 83 06/02/19 11:10 Respiratory Rate 13 06/02/19 11:10 Blood Pressure 225/105 H 06/02/19 11:10 Pulse Oximetry 98 06/02/19 11:10 <Monae Tavera MD - Last Filed: 06/02/19 17:15> Initial Vital Signs Initial Vital Signs: Vital Signs Temperature 97.6 F 06/02/19 11:10 Pulse Rate 83 06/02/19 11:10 Respiratory Rate 13 06/02/19 11:10 Blood Pressure 225/105 H 06/02/19 11:10 Pulse Oximetry 98 06/02/19 11:10 Scores <TATUM Bacon - Last Filed: 06/02/19 15:28> GCS Jesus coma scale eye opening: Spontaneous Jesus coma scale verbal response: Orientated Jesus coma scale motor response: Obey commands [place] coma scale total score: 15 Course <TATUM Bacon - Last Filed: 06/02/19 15:28> Orders Ordered: ED Orders 06/02/19 11:12 XR ribs RT min 3V w CXR1V Stat Discontinued Medications Lidocaine (Lidoderm) 1 each TOP NOW ONE Stop: 06/02/19 11:24 Last Admin: 06/02/19 11:44 Dose: 1 each Documented by: SONAL Vital Signs Vital signs: Vital Signs - 8 hr 06/02/19 11:10 Temperature 97.6 F Pulse Rate 83 Respiratory Rate 13 Blood Pressure 225/105 H Pulse Oximetry 98 <Monae Tavera MD - Last Filed: 06/02/19 17:15> Orders Ordered: ED Orders 06/02/19 11:12 XR ribs RT min 3V w CXR1V Stat Discontinued Medications Lidocaine (Lidoderm) 1 each TOP NOW ONE Stop: 06/02/19 11:24 Last Admin: 06/02/19 11:44 Dose: 1 each Documented by: SONAL Vital Signs Vital signs: Vital Signs - 8 hr 06/02/19 11:10 Temperature 97.6 F Pulse Rate 83 Respiratory Rate 13 Blood Pressure 225/105 H Pulse Oximetry 98 MDM - Chest Pain <TATUM Bacon - Last Filed: 06/02/19 15:28> Imaging Data Chest x-ray: Radiologist's Impression: [address] [place] [id number] XRay Report Signed Patient: Radha Mcgee MMR#: [id number] : 1965Acct:[id number] Age/Sex: 53 / FDate of Service: 06/02/19 Loc: ED Accession Number: [id number] Procedure: XR ribs RT min 3V w CXR1V Ordering Provider: Stephanie Manuel-BC PROCEDURE: XR RIBS RT MIN 3V W CXR 1V INDICATIONS: right right pain after cough. TECHNIQUE: 2 views of the right ribs were acquired, along with a single view chest. COMPARISON: None. FINDINGS: Surgical changes and devices: None. Bones and chest wall: No fractures or dislocations. No suspicious bony lesions. Overlying soft tissues appear unremarkable. Lungs and pleura: No pleural effusions or pneumothorax. Lungs appear clear. Mediastinum: Mediastinal contours appear normal. Heart size is normal. IMPRESSION: No displaced rib fractures visualized. Dictated by: Briana Martin M.D. on 06/02/2019 at 12:03 Approved by: Briana Martin M.D. on 06/02/2019 at 12:04 MDM Narrative Medical decision making narrative: The patient is a 53-year-old female who presents with a chief complaint of chest wall pain since Saturday. X-ray showed no acute abnormalities. She does not want any Toradol during her stay in the emergency department. She declined my offer there of. Exam and history are consistent with musculoskeletal pain. Discussed at length continued Motrin, [id number] pain medications as needed and able. Of note she was not coughing throughout her stay in the emergency department. Encourage PCP follow-up in the next few days, discussed going back to the emergency department for any acute concerns. Patient has no questions or concerns upon discharge and states understanding of return precautions as well as follow-up care. Discharge Plan Departure Patient Disposition: Home Clinical Impression: Chest pain, pleuritic Discharge Date/Time: 06/02/19 12:41 Instructions: DI for Atypical Chest Pain, DI for Pleurisy Activity Restrictions/Additional Instructions: Thank you for trusting us with your care today As discussed, your chest x-ray shows no rib fractures, displaced ribs, pneumonia etcetera Please continue your Motrin. Please use Ice and or heat as needed and able Please follow-up with primary care provider Please come back to the emergency department for any acute concerns Prescriptions: No Action lisinopril tablet 20 mg PO DAILY RF: 0 metoprolol tartrate 25 mg tablet 100 mg PO BID RF: 0 Referrals: Silvano Apple MD [Primary Care Provider] -
[2019-06-02] MEDS: LIDOCAINE PATCH 1 EACH ADH..PATCH TOP (11:44)
--- NOTE | 2019-06-02 12:53 | PC.NURSE ---
Patient left instructions in the room.
== END 2019-06-02 12:41 | disposition home or self-care (01) ==
PROVIDERS: Emergency Provider Nurse Practitioner Family; Family Provider Family Medicine; PCP Family Medicine
DX: R07.81 Pleurodynia (principal); R05 Cough; I10 Essential (primary) hypertension
CPT/HCPCS: 71101; 99283

== ENCOUNTER 2022-03-16 09:40 | Emergency (ER) | payer OTHER, SELFPAY ==
[2022-03-16] VITALS (28 sets, daily range): BP systolic 131–197; BP diastolic 74–113; PULSE 83–179; RESP 14–28; TEMP 36.2; O2SAT 96–99; BMI 31.6
--- NOTE | 2022-03-16 09:56 | DI.RAD.S_ITS ---
PROCEDURE: XR CHEST 1V INDICATIONS: chest pain TECHNIQUE: One view of the chest was acquired. COMPARISON: [facility], , CHEST 2 VIEW, 07/06/2014, 11:24. FINDINGS: Surgical changes and devices: None. Lungs and pleura: Lungs are clear. No pleural effusions or pneumothorax. Mediastinum: Mediastinal contours appear normal. Heart size is normal. Bones and chest wall: No suspicious bony lesions. Overlying soft tissues appear unremarkable. Old right rib fracture. IMPRESSION: No acute pulmonary process. Dictated by: Lu Altamirano M.D. on 03/16/2022 at 11:02 Approved by: Lu Altamirano M.D. on 03/16/2022 at 11:03
[2022-03-16 10:06] LABS: Add Manual Diff / Slide Review NO; Basophils Absolute Auto 100 /uL (0-100); Basophils Percent Auto 0.9 % (0-2); Eosinophils Absolute Auto 200 /uL (0-450); Eosinophils Percent Auto 1.6 % (2-4); Hemoglobin 15.3 g/dL (12.0-16.0); Lymphocytes Absolute Auto 4900 /uL (1100-4500); Lymphocytes Percent Auto 41.5 % (25-40); Mean Corpuscular HGB Conc 34.8 % (30-36); Mean Corpuscular Hemoglobin 33.5 PG (26-34); Mean Corpuscular Volume 96.4 fL (80-100); Monocytes Absolute Auto 1100 /uL (0-900); Monocytes Percent Auto 9.6 % (3-14); Neutrophils Absolute Auto 5500 /uL (1500-7000); Neutrophils Percent Auto 46.4 % (50-75); Platelet Count 263 X10^3/uL (150-400); Red Blood Cell Count 4.57 X10^6/uL (4.0-5.2); Red Cell Distribution Width 12.9 % (11.6-14.8); White Blood Cell Count 11.9 X10^3/uL (4.5-11.0)
[2022-03-16 10:10] LABS: INR 0.9 (0.9-1.3); Prothrombin Time 10.2 SECONDS (10.1-12.7)
[2022-03-16 10:13] LABS: PTT Partial Thromboplastin Tim 27 SECONDS (26-36)
[2022-03-16 10:17] LABS: Alanine Aminotransferase 104 IU/L (<35); Albumin 4.8 g/dL (3.5-5.0); Albumin Globulin Ratio 1.3 (1.0-2.8); Alkaline Phosphatase 170 U/L (38-126); Aspartate Aminotransferase 73 IU/L (14-36); BUN Creatinine Ratio 18.3 (6-22); Bilirubin Total 0.6 mg/dL (0.2-1.3); Blood Urea Nitrogen 17 mg/dL (7-17); Calcium 9.2 mg/dL (8.4-10.2); Carbon Dioxide 23 mmol/L (22-32); Chloride 102 mmol/L (98-107); Creatine Kinase 120 U/L (30-135); Estimated Glomerular Filt Rate > 60 mL/min (>60); Globulin 3.6 g/dL (1.7-4.1); Glucose 115 mg/dL (70-100); HEMOLYSIS < 15 (0-50); Lipase 425 U/L (23-300); Potassium 3.5 mmol/L (3.4-5.1); Sodium 136 mmol/L (137-145); Total Protein 8.4 g/dL (6.3-8.2)
[2022-03-16] MEDS: dilTIAZem 5 MG/ML SDV 10 MG IV (10:18)
[2022-03-16 10:28] LABS: Troponin I < 0.012 ng/mL (0.01-0.034)
[2022-03-16] MEDS: SODIUM CHLORIDE 0.9% 1,000 ML 1000 ML IV (10:29)
[2022-03-16 10:32] LABS: CKMB % Relative Index 0.3 % (1.5-5.0); Creatine Kinase MB 0.35 ng/mL (<2.37)
[2022-03-16 10:38] LABS: D Dimer 970 ng/ml (<500)
[2022-03-16 10:41] LABS: COVID-19 CEPHEID 4-PLEX PCR Negative (Negative); Influenza A - CEPHEID Flu A NEGATIVE (NEGATIVE); Influenza B - CEPHEID Flu B NEGATIVE (NEGATIVE); Respiratory Syncytial Virus Negative (Negative)
--- NOTE | 2022-03-16 11:57 | ED.ARRPALP ---
HPI - Arrhythmia/Palpitations General Chief Complaint: Arrhythmia/Palpitations Stated Complaint: palpitations, dizzy spells, shortness of breath Time Seen by Provider: 03/16/22 10:15 Source: patient Mode of arrival: Ambulatory History of Present Illness HPI narrative: Patient is a 56-year-old female known smoker history of hypertension presenting today with ongoing shortness of breath and palpitations. She said that she was diagnosed with COVID or an infection a couple months ago. She really has not felt well for a few months. However she is had increasing episodes of racing heart palpitations dizziness does when she has to sit down and some shortness of breath. Today she says that the episodes are more frequent and longer. She is in AFib with RVR in a heart rate in the 180s currently. It actually. She got herself out of it however she went right back into it. She is not had any fever or chills. She feels bloated in her abdomen no nausea or vomiting. She denies any recent travel. He has no abdominal pain Related Data Home Medications Medication Instructions Recorded Confirmed lisinopril 20 mg PO DAILY 02/20/19 02/20/19 metoprolol tartrate 25 mg tablet 100 mg PO BID 02/20/19 02/20/19 Previous Rx's Medication Instructions Recorded apixaban 5 mg tablet (Eliquis) 5 mg PO BID #60 tabs 03/16/22 Allergies Allergy/AdvReac Type Severity Reaction Status Date / Time No Known Allergies Allergy Verified 03/16/22 09:51 antibiotic AdvReac Mild Uncoded 02/20/19 14:24 Review of Systems Review of Systems ROS Unobtainable: All systems reviewed & are unremarkable except as noted in HPI and below Patient History Social History household members: significant other Smoking Status: Current every day smoker Smoking Status: Current every day smoker tobacco type: cigarettes alcohol intake frequency: 0-2 drinks per day Alcohol type: hard liquor Substance Use Type: does not use Exam Initial Vital Signs Initial Vital Signs: Vital Signs Temperature 97.2 F L 03/16/22 09:51 Pulse Rate 179 H 03/16/22 09:51 Respiratory Rate 28 H 03/16/22 09:51 Blood Pressure 197/96 H 03/16/22 09:51 Pulse Oximetry 99 03/16/22 09:51 Oxygen Delivery Method 03/16/22 09:51 GENERAL: Alert well-appearing 56-year-old female HEENT: Head atraumatic,EOMI, pupils reactive, face symmetric, moist mucous membranes CARDIOVASCULAR: Regular rate and rhythm without murmurs, rubs or gallops. RESPIRATORY: Slightly decreased breath sounds without respiratory distress speaks in full sentence ABDOMEN: Soft, nontender. Normoactive bowel sounds all 4 quadrants. No guarding or rebound. EXTREMITIES: Normal range of motion, no clubbing or edema. Neurovascularly intact NEUROLOGICAL: Alert and oriented x4.Normal gait and speech. SKIN: Warm, dry, no laceration, no petechiae, no rashes or lesions. Scores CHADS-VASc Congestive heart failure: no Hypertension: yes Age 75 years or older: no Diabetes mellitus: no Stroke, TIA, or TE: no Vascular disease: no Age 65 to 74 years: no Sex category (female): Female CHADS-VASc Score: 2 Course Orders Ordered: ED Orders 03/16/22 09:50 BNP [NT-proBNP (BNP-Adult 18+)] Stat Complete Blood Count AUTO DIFF Stat Comprehensive Metabolic Panel Stat Covid-19 + FLU A/B + RSV - PCR Stat D Dimer Stat Lipase Stat Magnesium Stat Partial Thromboplastin Time Stat Prothrombin Time INR Stat Troponin & CK Cardiac Panel Stat 03/16/22 09:56 XR chest 1V Stat 03/16/22 10:14 EKG-12 Lead Stat 03/16/22 11:58 CT angio chest PE protocol Stat Discontinued Medications Apixaban (Apixaban 5 Mg Tablet) 5 mg PO NOW ONE Stop: 03/16/22 13:19 Diltiazem HCl (Diltiazem 5 Mg/Ml Sdv) 10 mg IV NOW ONE Stop: 03/16/22 10:16 Last Admin: 03/16/22 10:18 Dose: 10 mg Documented By: NR Sodium Chloride (Normal Saline 0.9%) 1,000 mls @ 1,000 mls/hr IV BOLUS ONE Stop: 03/16/22 11:14 Last Infusion: 03/16/22 12:39 Dose: 0 mls/hr Documented By: [facility] Admin: 03/16/22 10:29 Dose: 1,000 mls/hr Documented By: NR Vital Signs Vital signs: Vital Signs - 8 hr 03/16/22 09:51 03/16/22 10:18 03/16/22 10:04 Temperature 97.2 F L Pulse Rate 179 H 117 H 118 H Respiratory Rate 28 H 18 Blood Pressure 197/96 H 177/113 H Pulse Oximetry 99 99 Oxygen Delivery Method Room Air 03/16/22 10:05 03/16/22 10:05 03/16/22 10:15 Temperature Pulse Rate 120 H Respiratory Rate 15 Blood Pressure 159/105 H 177/113 H Pulse Oximetry 99 Oxygen Delivery Method 03/16/22 10:15 03/16/22 10:25 03/16/22 10:25 Temperature Pulse Rate 178 H 111 H Respiratory Rate 20 15 Blood Pressure 131/76 Pulse Oximetry 98 97 Oxygen Delivery Method 03/16/22 10:30 03/16/22 10:30 03/16/22 10:35 Temperature Pulse Rate 117 H Respiratory Rate 27 H Blood Pressure 149/77 H 154/82 H Pulse Oximetry 99 Oxygen Delivery Method 03/16/22 10:35 03/16/22 10:40 03/16/22 10:40 Temperature Pulse Rate 109 H 100 H Respiratory Rate 20 14 Blood Pressure 144/78 H Pulse Oximetry 98 97 Oxygen Delivery Method 03/16/22 10:45 03/16/22 10:45 03/16/22 10:50 Temperature Pulse Rate 102 H 99 H Respiratory Rate 18 21 Blood Pressure 155/86 H Pulse Oximetry 97 97 Oxygen Delivery Method 03/16/22 10:50 03/16/22 10:55 03/16/22 10:55 Temperature Pulse Rate 101 H Respiratory Rate 14 Blood Pressure 156/87 H 147/84 H Pulse Oximetry 97 Oxygen Delivery Method 03/16/22 11:00 03/16/22 11:00 03/16/22 11:05 Temperature Pulse Rate 96 H 94 H Respiratory Rate 15 16 Blood Pressure 156/90 H Pulse Oximetry 96 97 Oxygen Delivery Method 03/16/22 11:05 03/16/22 11:10 03/16/22 11:10 Temperature Pulse Rate 92 H Respiratory Rate 14 Blood Pressure 150/83 H 151/77 H Pulse Oximetry 97 Oxygen Delivery Method 03/16/22 11:42 03/16/22 11:43 03/16/22 11:43 Temperature Pulse Rate 94 H 88 Respiratory Rate 21 14 Blood Pressure 169/74 H Pulse Oximetry 98 98 Oxygen Delivery Method 03/16/22 11:45 03/16/22 11:45 03/16/22 11:50 Temperature Pulse Rate 96 H Respiratory Rate 18 Blood Pressure 162/88 H 162/85 H Pulse Oximetry 98 Oxygen Delivery Method 03/16/22 11:50 03/16/22 11:55 03/16/22 11:55 Temperature Pulse Rate 90 90 Respiratory Rate 15 15 Blood Pressure 157/81 H Pulse Oximetry 97 98 Oxygen Delivery Method 03/16/22 12:00 03/16/22 12:00 03/16/22 12:05 Temperature Pulse Rate 83 84 Respiratory Rate 15 14 Blood Pressure 151/79 H Pulse Oximetry 97 97 Oxygen Delivery Method 03/16/22 12:05 03/16/22 12:10 03/16/22 12:10 Temperature Pulse Rate 86 Respiratory Rate 16 Blood Pressure 157/87 H 166/87 H Pulse Oximetry 96 Oxygen Delivery Method MDM - Arrhythmia/Palpitations Lab Data Result diagrams: 03/16/22 09:50 03/16/22 09:50 Labs: Lab Results 03/16/22 03/16/22 03/16/22 Range/Units 09:50 09:50 09:50 WBC 11.9 H (4.5-11.0) X10^3/uL RBC 4.57 (4.0-5.2) X10^6/uL Hgb 15.3 (12.0-16.0) g/dL Hct 44.0 (36-46) % MCV 96.4 (80-100) fL MCH 33.5 (26-34) PG MCHC 34.8 (30-36) % RDW 12.9 (11.6-14.8) % Plt Count 263 (150-400) X10^3/uL Neut % (Auto) 46.4 L (50-75) % Lymph % (Auto) 41.5 H (25-40) % Taylor % (Auto) 9.6 (3-14) % Eos % (Auto) 1.6 L (2-4) % Baso % (Auto) 0.9 (0-2) % Neut # (Auto) 5500 (1967-7885) /uL Lymph # (Auto) 4900 H (9517-1774) /uL Taylor # (Auto) 1100 H (0-900) /uL Eos # (Auto) 200 (0-450) /uL Baso # (Auto) 100 (0-100) /uL PT 10.2 (10.1-12.7) SECONDS INR 0.9 (0.9-1.3) APTT 27 (26-36) SECONDS D-Dimer (<500) ng/ml Sodium (137-145) mmol/L Potassium (3.4-5.1) mmol/L Chloride (98-107) mmol/L Carbon Dioxide (22-32) mmol/L BUN (7-17) mg/dL Creatinine (0.52-1.04) mg/dL Estimated GFR (>60) mL/min BUN/Creatinine Ratio (6-22) Glucose (70-100) mg/dL Calcium (8.4-10.2) mg/dL Magnesium (1.6-2.3) mg/dL Total Bilirubin (0.2-1.3) mg/dL AST (14-36) IU/L ALT (<35) IU/L Alkaline Phosphatase (38-126) U/L Total Creatine Kinase (30-135) U/L CK-MB (CK-2) (<2.37) ng/mL CK-MB (CK-2) Rel Index (1.5-5.0) % Troponin I (0.01-0.034) ng/mL NT-Pro-B Natriuret Pep (<125) pg/mL Total Protein (6.3-8.2) g/dL Albumin (3.5-5.0) g/dL Globulin (1.7-4.1) g/dL Albumin/Globulin Ratio (1.0-2.8) Lipase (23-300) U/L SARS-CoV-2 (PCR) Negative (Negative) Influenza A (RT-PCR) Flu a negative (NEGATIVE) Influenza B (RT-PCR) Flu b negative (NEGATIVE) RSV (PCR) Negative (Negative) 03/16/22 03/16/22 03/16/22 Range/Units 09:50 09:50 09:50 WBC (4.5-11.0) X10^3/uL RBC (4.0-5.2) X10^6/uL Hgb (12.0-16.0) g/dL Hct (36-46) % MCV (80-100) fL MCH (26-34) PG MCHC (30-36) % RDW (11.6-14.8) % Plt Count (150-400) X10^3/uL Neut % (Auto) (50-75) % Lymph % (Auto) (25-40) % Taylor % (Auto) (3-14) % Eos % (Auto) (2-4) % Baso % (Auto) (0-2) % Neut # (Auto) (3221-9220) /uL Lymph # (Auto) (7292-4049) /uL Taylor # (Auto) (0-900) /uL Eos # (Auto) (0-450) /uL Baso # (Auto) (0-100) /uL PT (10.1-12.7) SECONDS INR (0.9-1.3) APTT (26-36) SECONDS D-Dimer 970 H (<500) ng/ml Sodium 136 L (137-145) mmol/L Potassium 3.5 (3.4-5.1) mmol/L Chloride 102 (98-107) mmol/L Carbon Dioxide 23 (22-32) mmol/L BUN 17 (7-17) mg/dL Creatinine 0.93 (0.52-1.04) mg/dL Estimated GFR > 60 (>60) mL/min BUN/Creatinine Ratio 18.3 (6-22) Glucose 115 H (70-100) mg/dL Calcium 9.2 (8.4-10.2) mg/dL Magnesium 2.0 (1.6-2.3) mg/dL Total Bilirubin 0.6 (0.2-1.3) mg/dL AST 73 H (14-36) IU/L ALT 104 H (<35) IU/L Alkaline Phosphatase 170 H (38-126) U/L Total Creatine Kinase 120 (30-135) U/L CK-MB (CK-2) 0.35 (<2.37) ng/mL CK-MB (CK-2) Rel Index 0.3 L (1.5-5.0) % Troponin I < 0.012 (0.01-0.034) ng/mL NT-Pro-B Natriuret Pep 87 (<125) pg/mL Total Protein 8.4 H (6.3-8.2) g/dL Albumin 4.8 (3.5-5.0) g/dL Globulin 3.6 (1.7-4.1) g/dL Albumin/Globulin Ratio 1.3 (1.0-2.8) Lipase 425 H (23-300) U/L SARS-CoV-2 (PCR) (Negative) Influenza A (RT-PCR) (NEGATIVE) Influenza B (RT-PCR) (NEGATIVE) RSV (PCR) (Negative) Urine Dip Bedside Urine Glucose Negative Bedside Urine Bilirubin - Negative Bedside Urine Ketone - Negative Urine Specific [facility] 1.005 Bedside Urine Occult Blood - Negative Bedside Urine pH 6.0 Bedside Urine Protein - Negative Bedside Urine Urobilinogen - Negative Bedside Urine Nitrite - Negative Bedside Urine Leukocytes - Negative Esterase Imaging Data Chest x-ray: Radiologist's Impresson: Signed Patient: Radha Mcgee MR#: [id number] : 1965 Acct:[id number] Age/Sex: 56 / F Date of Service: 03/16/22 Loc: ED Accession Number: [id number] ?? Procedure: XR chest 1V Ordering Provider: Jolene Green D.O. PROCEDURE:? XR CHEST 1V ? INDICATIONS:? chest pain ? TECHNIQUE:? One view of the chest was acquired.? ? COMPARISON:? [facility], , CHEST 2 VIEW, 07/06/2014, 11:24. ? FINDINGS:? ? Surgical changes and devices:? None.? ? Lungs and pleura:? Lungs are clear.? No pleural effusions or pneumothorax.? ? Mediastinum:? Mediastinal contours appear normal.? Heart size is normal.? ? Bones and chest wall:? No suspicious bony lesions.? Overlying soft tissues appear unremarkable.? Old right rib fracture. ? IMPRESSION:? No acute pulmonary process. ? ? Dictated by: Lu Altamirano M.D. on 03/16/2022 at 11:02 ? ECG Data Interpretation: AFib with RVR rate [address] depression no ST-elevation MDM Narrative Medical decision making narrative: Patient is a 56-year-old female history of smoking and hypertension presenting today with new onset atrial fibrillation. She did have a couple episodes of AFib with RVR she was given diltiazem 10 mg she is been in sinus rhythm. She is a chads Vasc [address] angio did not show any pulmonary embolism but does show nodule and recommend repeat CT, I did discuss this nodule with her. She has negative troponin. Long discussion with patient in regards to risks of atrial fibrillation. She actually is taking metoprolol to help with rate control she is maxed out at 100 mg twice daily. She will need Eliquis. Long discussion with patient regards to risks of anticoagulation including bleeding and life-threatening bleeding. So discussed differences between warfarin and Eliquis. Agree with Eliquis at this time. She has no high-risk bleeding, but does admit she has some hemorrhoids and some mild hemorrhoidal bleeding Dr. Castillo updated on patient's symptoms test results agrees with outpatient follow-up and Eliquis. HAS-BLED Score for Major Bleeding Risk from [email or web address] on 03/16/2022 All calculations should be rechecked by clinician prior to use RESULT SUMMARY: 2 points Risk was 4.1% in one validation study (George 2010) and 1.88 bleeds per 100 patient-years in another validation study (Pisters 2010). Anticoagulation can be considered, however patient does have moderate risk for major bleeding (~2/100 patient-years). INPUTS: Hypertension ?> 1 = Yes Renal disease ?> 0 = No Liver disease ?> 0 = No Stroke history ?> 0 = No Prior major bleeding or predisposition to bleeding ?> 1 = Yes Labile INR ?> 0 = No Age >65 ?> 0 = No Medication usage predisposing to bleeding ?> 0 = No Alcohol use ?> 0 = No Discharge Plan Departure Patient Disposition: Home Clinical Impression: Atrial fibrillation Activity Restrictions/Additional Instructions: *You have been diagnosed with atrial fibrillation, pulmonary nodule *What to do: At this time you atrial fibrillation. You will need to start taking Eliquis which is a blood thinner. Avoid high-risk activities and falling. If you should fall and hit her head please come to the emergency department. If you should experience more palpitations dizziness or lightheadedness you should also return to the ED. You were found to have a small nodule on your lungs this will need close follow-up so that it can be monitored for cancer *Continue to take medications as directed Eliquis 5 mg twice daily *Follow up with your primary care provider in 2-3 days or call [phone] *Return to ER if you should have increasing palpitations shortness of breath falling or any new, worsening or concerning symptoms Prescriptions: New Eliquis 5 mg tablet 5 mg PO BID Qty: 60 0RF No Action lisinopril tablet 20 mg PO DAILY metoprolol tartrate 25 mg tablet 100 mg PO BID Referrals: Silvano Apple MD [Primary Care Provider] - Armida Pereira ARNP [Advanced Safety And Security Officer] - Stand Alone Forms: Patient Portal/API
--- NOTE | 2022-03-16 11:58 | DI.CT.S_ITS ---
PROCEDURE: CT ANGIO CHEST PE PROTOCOL INDICATIONS: new onset afib with high dimer TECHNIQUE: After the administration of intravenous contrast, 2 mm thick sections acquired from the pulmonary apices to the posterior costophrenic angles. 3-dimensional maximum intensity projection (MIP) coronal and sagittal reformats were then acquired through the thorax. For radiation dose reduction, the following was used: automated exposure control, adjustment of mA and/or kV according to patient size. COMPARISON: [facility], CR, XR CHEST 1V, 03/16/2022, 10:08. FINDINGS: Image quality: Excellent. Pulmonary arteries: Pulmonary arteries are normal in size, and demonstrate no intraluminal filling defects to suggest central pulmonary embolism. Lungs and pleura: There is no acute airspace opacity. Tiny 2 mm solid appearing nodule is noted in anterior right upper lobe near major fissure series 5, image 181. No other pulmonary nodule is seen. No pleural effusions or pneumothorax. Central and peripheral airways are patent. Mediastinum: Heart size is normal, without pericardial effusion. No mediastinal or hilar adenopathy. Thoracic aorta is normal in caliber and enhancement. Esophagus is normal in caliber, without hiatal hernia. Bones and chest wall: No suspicious bony lesions. Ribs and thoracic spine appear intact throughout. Thyroid gland is within normal limits. No axillary or supraclavicular adenopathy. Abdomen: Visualized upper abdominal solid organs appear normal in the early arterial phase of enhancement. Moderate hepatic steatosis is seen. IMPRESSION: 1. No evidence of pulmonary emboli. No thoracic aortic aneurysm or dissection. 2. Incidentally noted of a 2 millimeter nodule in anterior right lower lobe adjacent to major fissure. No other pulmonary nodule or mass. No focal infiltrate, pleural effusion or pneumothorax. If indicated, CT chest follow-up in 12 months can be done for evaluation of stability. 3. No mediastinal or hilar lymphadenopathy. Dictated by: Mau Lozano M.D. on 03/16/2022 at 12:37 Approved by: Mau Lozano M.D. on 03/16/2022 at 12:40
[2022-03-16 12:12] LABS: NT-proBNP (BNP-Adult 18+) 87 pg/mL (<125)
[2022-03-16] MEDS: APIXABAN 5 MG TABLET PO (13:50)
== END 2022-03-16 14:15 | disposition home or self-care (01) ==
PROVIDERS: Emergency Provider Emergency Medicine; Family Provider Family Medicine; PCP Family Medicine
DX: R07.9 Chest pain, unspecified (principal); R42 Dizziness and giddiness; Z86.16 Personal history of COVID-19; I48.91 Unspecified atrial fibrillation; Z79.01 Long term (current) use of anticoagulants
CPT/HCPCS: 0241U; 36415; 71045; 71275; 80053; 81003; 82550; 82553; 83690; 83735; 83880; 84484; 85025; 85379; 85610; 85730; 93005; 93010; 96361; 96374; 99285; Q9967

== ENCOUNTER → 2022-04-12 07:44 | Outpatient (CLI) | payer OTHER, SELFPAY ==
--- NOTE | 2022-04-12 | DI.ECHO.S_ITS ---
[place] +---------+ [facility] +---------+ : : [address] : : : : [id number] : : : : Phone: [phone]+ Echocardiogram Report + + :Name: EMILY LOPEZ Study Date: 04/12/2022 Height: 63 in : :[facility] ReadingLocation: Weight: 178 lb : : Gender: Female BSA: 1.8 m2 : :: 1965 Age: 56 yrs BP: 118/85 mmHg: :Reason For Study: ATRIAL FIBRILLATION : :Ordering Physician: KATLIN, : :SEBAS Performed By: Esperanza Bennett : :Referring: SEBAS DALAL : + + Interpretation Summary The ejection fraction is estimated to be 60-65%. Diastolic parameters suggest probable normal left ventricular diastolic function and normal filling pressures. The right ventricle is normal in size and function. There is moderate right ventricular hypertrophy. No significant valvular abnormalities. Unable to estimate PASP. Procedure: A two-dimensional transthoracic echocardiogram with color flow and Doppler was performed. The study quality was technically difficult. There is no prior echocardiogram noted for this patient. The patient was in sinus rhythm with heart rates between 75-95 bpm during the exam. The patient had occasional PVCs during the exam. Left Ventricle: The left ventricle is normal in size and wall thickness. The ejection fraction is estimated to be 60-65%. Diastolic parameters suggest probable normal left ventricular diastolic function and normal filling pressures. Right Ventricle: The right ventricle is normal in size and function. There is moderate right ventricular hypertrophy. Atria: The left atrial size is normal. Right atrial size is normal. There is no Doppler evidence for an interatrial shunt. Mitral Valve: The mitral valve is normal in structure and function. There is no mitral regurgitation noted. Aortic Valve: The aortic valve is trileaflet. The aortic valve opens well. There is no aortic valve stenosis. No aortic regurgitation is present. Tricuspid Valve: The tricuspid valve is normal in structure and function. There is trace tricuspid regurgitation. Pulmonary artery pressures cannot be estimated because of the lack of a measurable TR jet velocity. Pulmonic Valve: The pulmonic valve is not well visualized. There is no pulmonic valvular regurgitation. Great Vessels: The aortic root is normal size. The dimensions of the ascending aorta are normal. The IVC is of normal diameter and collapses greater than 50% with a sniff. This suggests a low right atrial pressure of 3 mm Hg. Pericardium/ Pleura There is an anterior echo-free space consistent with a fat pad. This is unchanged compared to the previous study. MMode/2D Measurements & Calculations LVIDd: 4.8 cm LVOT diam: 2.2 cm LVIDs: 3.3 cm Ao root diam: 3.1 cm FS: 31.1 % asc Aorta Diam: 3.5 cm IVSd: 0.93 cm LVPWd: 1.0 cm LV ervin. diameter/BSA (cm/m^2): 2.6 LV sys. diameter/BSA (cm/m^2): 1.8 LA A2 area: 14.3 cm2 RA long axis: 4.2 cm LA A4 area: 14.4 cm2 RA area: 12.7 cm2 LA length (vol): 4.5 cm RA vol: 32.7 ml LA vol: 39.1 ml RA : 17.8 ml/m2 LA vol index: 21.3 ml/m2 IVC diam: 1.3 cm RVD1 (basal): 3.0 cm RV Wall_phl: 1.1 cm RVD2 (mid): 2.6 cm TAPSE: 1.7 cm Doppler Measurements & Calculations Ao V2 max: 158.6 cm/sec LVOT Max Thomas: 139.3 cm/sec Ao V2 mean: 113.4 cm/sec LV V1 max P.8 mmHg Ao max P.1 mmHg LV V1 VTI: 23.7 cm Ao mean P.8 mmHg DESTIN(I,D): 3.3 cm2 Ao V2 VTI: 28.5 cm DESTIN(V,D): 3.4 cm2 sev ratio: 0.83 DESTIN indexed to BSA (cm^2/m^2): 1.8 MV E max thomas: 82.7 cm/sec PA V2 max: 109.0 cm/sec MV A max thomas: 101.4 cm/sec PA V2 mean: 74.9 cm/sec MV E/A: 0.82 PA mean P.6 mmHg Med Peak E' Thomas: 8.0 cm/sec PA pr(Accel): 17.3 mmHg E/E' med: 10.3 Lat Peak E' Thomas: 7.3 cm/sec E/E' lat: 11.3 E/e' average: 10.8 MV dec time: 0.18 sec MVA(VTI): 4.0 cm2 MV V2 mean: 78.0 cm/sec SV(LVOT): 92.7 ml MV mean P.7 mmHg MV V2 VTI: 23.1 cm Reading Physician:03:21 PM
== END ==
PROVIDERS: Family Provider Family Medicine; PCP Family Medicine; Referring Provider Internal Medicine; Visit Provider Internal Medicine
DX: I48.91 Unspecified atrial fibrillation (principal)
CPT/HCPCS: 93306

== ENCOUNTER → 2023-01-31 06:37 | Outpatient (CLI) | payer OTHER, SELFPAY ==
--- NOTE | 2023-01-31 | DI.US.S_ITS ---
PROCEDURE: US ABDOMEN LIMITED INDICATIONS: ELEVATED LFT RIGHT UPPER QUADRANT PAIN TECHNIQUE: Real-time focused scanning was performed of the abdomen, with image documentation. COMPARISON: [facility], CT, CT ANGIO CHEST PE PROTOCOL, 03/16/2022, 12:16. FINDINGS: The liver demonstrates enlarged size. The liver demonstrates generalized moderately to prominently increased echogenicity. This decreases ultrasound sensitivity for detection of hepatic masses. No findings of gallstones or sludge are seen. The gallbladder wall is not thickened, measuring 3 mm or less. No specific pericholecystic fluid is seen. The sonographic Grady sign is negative. There is borderline biliary ductal dilatation, measuring 7.4 mm. No significant pancreatic abnormality is seen on these images. No free fluid is seen. IMPRESSION: Normal appearing gallbladder. Borderline prominent common bile duct, measuring 7.4 mm, with the upper limits of normal considered to be 7 mm. Enlarged, fatty infiltrated liver. Dictated by: London Lind M.D. on 01/31/2023 at 12:51 Approved by: London Lind M.D. on 01/31/2023 at 12:53
== END ==
PROVIDERS: Family Provider Family Medicine; PCP Internal Medicine; Referring Provider Internal Medicine; Visit Provider Internal Medicine
DX: K76.0 Fatty (change of) liver, not elsewhere classified (principal); R10.11 Right upper quadrant pain; R79.89 Other specified abnormal findings of blood chemistry
CPT/HCPCS: 76705

== ENCOUNTER → 2023-02-07 09:57 | Outpatient (CLI) | payer OTHER, SELFPAY ==
--- NOTE | 2023-02-07 | DI.CT.S_ITS ---
PROCEDURE: CT ABDOMEN PELVIS W CON INDICATIONS: Right upper quadrant pain TECHNIQUE: After the administration of oral and intravenous contrast, axial sections were acquired from the lung bases to the pubic symphysis. Coronal and sagittal reformats were performed. For radiation dose reduction, the following was used: automated exposure control, adjustment of mA and/or kV according to patient size. COMPARISON:[facility], CT, CT-IVP, 04/12/2008, 11:06. [facility], CT, CT ANGIO CHEST PE PROTOCOL, 03/16/2022, 12:16. FINDINGS: Image quality: Excellent. Lung bases: Lung bases are clear. Heart size is normal. Solid organs: Liver: The liver has no mass or intrahepatic biliary ductal dilatation. The liver has decreased density consistent with hepatic steatosis. Biliary: The gallbladder has no gallstones, pericholecystic fluid, gallbladder wall thickening, or surrounding inflammatory change. Pancreas: The pancreas has no mass or ductal dilatation. There is no surrounding inflammation. Spleen: Normal size. There are no masses. Adrenals: No hypertrophy or right-sided nodules. The left adrenal gland has a 1.7 x 1.2 cm nodule unchanged compared to a 03/16/2022 CT but is indeterminate. Kidneys: No obstructive calculus or hydronephrosis. No solid mass. No cystic mass. Peritoneum and bowel: The distal esophagus and stomach are normal. The small bowel has a normal caliber and appearance. The terminal ileum is normal. The large bowel has a normal caliber and appearance. The appendix is normal. No free fluid or air. Nodes and vessels: No retroperitoneal or mesenteric adenopathy by size criteria. Aorta and inferior vena cava are normal in size. Miscellaneous: No abdominal wall mass or hernia. PELVIS: Genitourinary: The bladder has no wall thickening or mass. No bladder calcifications. Bones: No suspicious bony lesions. No vertebral body compression fractures. IMPRESSION: 1. No acute abdominal or pelvic abnormality. 2. Hepatic steatosis. 3. 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 On this study the nodule is indeterminate because of administered contrast, however on a prior PE protocol in which the adrenal glands were unenhanced, density measured 4 Hounsfield units consistent with a benign lipid rich adenoma. Dictated by: Ranjit Mcleod M.D. on 02/07/2023 at 12:16 Approved by: Ranjit Mcleod M.D. on 02/07/2023 at 12:26
== END ==
LOC: CT 09:57
PROVIDERS: Family Provider Family Medicine; PCP Internal Medicine; Referring Provider Internal Medicine; Visit Provider Internal Medicine
DX: F10.10 Alcohol abuse, uncomplicated (principal); F17.219 Nicotine dependence, cigarettes, with unspecified nicotine-induced disorders; D35.02 Benign neoplasm of left adrenal gland; K76.0 Fatty (change of) liver, not elsewhere classified; K83.9 Disease of biliary tract, unspecified; R91.1 Solitary pulmonary nodule; R16.0 Hepatomegaly, not elsewhere classified; R10.11 Right upper quadrant pain; R79.89 Other specified abnormal findings of blood chemistry; R05.9 Cough, unspecified; R14.0 Abdominal distension (gaseous); R93.2 Abnormal findings on diagnostic imaging of liver and biliary tract
CPT/HCPCS: 74177; Q9967

== ENCOUNTER → 2023-02-13 10:37 | Outpatient (CLI) | payer OTHER, SELFPAY ==
--- NOTE | 2023-02-13 | DI.RAD.S_ITS ---
PROCEDURE: XR CHEST 2V INDICATIONS: COUGH TECHNIQUE: 2 views of the chest were acquired. COMPARISON: [facility], CR, XR CHEST 1V, 03/16/2022, 10:08. FINDINGS: Surgical changes and devices: None. Lungs and pleura: Left perihilar infiltrates suspicious for pneumonia. No pleural effusions or pneumothorax. Mediastinum: Mediastinal contours are normal. Heart size is normal. Bones and chest wall: No suspicious bony abnormalities. Soft tissues appear unremarkable. IMPRESSION: Suspect left perihilar pneumonia. Dictated by: Khalif Palma M.D. on 02/13/2023 at 12:16 Approved by: Khalif Palma M.D. on 02/13/2023 at 12:17
== END ==
PROVIDERS: Family Provider Family Medicine; PCP Internal Medicine; Referring Provider Internal Medicine; Visit Provider Internal Medicine
DX: R07.81 Pleurodynia (principal); R05.2 Subacute cough; R91.1 Solitary pulmonary nodule
CPT/HCPCS: 71046

== ENCOUNTER → 2023-05-04 12:41 | Outpatient (CLI) | payer OTHER, SELFPAY ==
--- NOTE | 2023-05-04 | DI.CT.S_ITS ---
PROCEDURE: CT CHEST WO CON INDICATIONS: Solitary pulmonary nodule TECHNIQUE: Noncontrast 2.0-2.5 mm thick sections acquired from the pulmonary apices to the posterior costophrenic angles. 7 mm thick axial MIP and 5 mm coronal and sagittal reformats were then acquired. For radiation dose reduction, the following was used: automated exposure control, adjustment of mA and/or kV according to patient size. COMPARISON: [facility], CT, CT ANGIO CHEST PE PROTOCOL, 03/16/2022, 12:16. FINDINGS: Image quality: Diagnostic. Lower Neck: No enlarged lymph nodes. Thyroid: No thyroid nodules which require sonographic follow up, per consensus guidelines. Axillae: No enlarged lymph nodes. Chest Wall: Unremarkable. Bones: New, age-indeterminate anterior compression deformity of the superior endplate of T6. No significant loss of the vertebral body height. Multilevel spondylosis of the imaged spine. No suspicious osseous lesion. Lungs and Pleura: No pneumothorax or pleural effusions. No consolidation or suspicious nodules. Tiny 2 mm perifissural pulmonary nodule is identified on image 222, series 3. No new pulmonary nodules identified. Heart: Heart size is normal. No pericardial effusion. Coronary atherosclerotic vascular calcifications are noted. Thoracic Vessels: The aorta and pulmonary arteries demonstrate normal size. Mediastinum and Teresa: No enlarged lymph nodes. Esophagus: No wall thickening. No hiatal hernia. Upper Abdomen: There is diffuse hypoattenuation of the liver parenchyma relative to the spleen compatible with hepatic steatosis. Other visualized upper abdomen solid organs and bowel loops appear normal. IMPRESSION: 1. CT chest without acute cardiopulmonary abnormalities. 2. Stable 2 mm perifissural anterior right lower lobe nodule. Recommend annual surveillance if patient meets criteria for low-dose lung cancer screening. Otherwise, if patient is at low risk for malignancy, no further imaging evaluation needed. Other chronic findings as above. Fleischner Society criteria for SOLID lung nodule followup. Nodule size (mm)Low-risk patientHigh-risk patient<6 (single or multiple)No routine followup.Optional CT at 12 months. 6-8 (single or multiple)CT at 6-12 months, then optional CT at 18-24 mo.CT at 6-12 months, then CT at 18-24 months. >8 (single)CT at 3 months, PET-CT, or biopsy. Same as for low-risk pts. >8 (multiple)CT at 3-6 months, then optional CT at 18-24 mo.CT at 3-6 months, then CT at 18-24 months. Fleischner Society criteria for SUB-SOLID lung nodule followup. Solitary pure ground-glass nodules<6 mm (ground glass or part solid)No followup needed. 6 mm or larger (ground glass)CT at 6-12 months to confirm persistence, then CT every 2 years until 5 years.6 mm or larger (part solid)CT at 3-6 months to confirm persistence, then annual CT until 5 years if unchanged and solid component remains <6 mm. Multiple sub-solid nodules<6 mmCT at 3-6 months, then CT consider at 2 & 4 years for high risk patients. [address] at 3-6 months. Subsequent management based on most suspicious lesions. Recommendations do not apply to lung cancer screening, patients with immunosuppression, or patients with known primary cancer. Dictated by: Howie Cano M.D. on 05/04/2023 at 14:07 Approved by: Howie Cano M.D. on 05/04/2023 at 14:17
== END ==
LOC: CT 12:42
PROVIDERS: Family Provider Family Medicine; PCP Internal Medicine; Referring Provider Internal Medicine; Visit Provider Internal Medicine
DX: R91.1 Solitary pulmonary nodule (principal); F17.219 Nicotine dependence, cigarettes, with unspecified nicotine-induced disorders
CPT/HCPCS: 71250

== ENCOUNTER → 2024-06-12 06:48 | Outpatient (CLI) | payer OTHER, SELFPAY ==
--- NOTE | 2024-06-12 06:49 | DI.CT.S_ITS ---
PROCEDURE: CT LUNG LOW DOSE SCREENING INDICATIONS: CIGARETTE NICOTINE DEPENDENCE TECHNIQUE: Noncontrast 2.0-2.5 mm thick sections acquired from the pulmonary apices to the posterior costophrenic angles. 7 mm thick axial MIP, and 5 mm coronal and sagittal reformats were then acquired. For radiation dose reduction, the following was used: automated exposure control, adjustment of mA and/or kV according to patient size. COMPARISON: None. FINDINGS: Image quality: Diagnostic. Lower Neck: No enlarged lymph nodes. Thyroid: No thyroid nodules which require sonographic follow up, per consensus guidelines. Axillae: No enlarged lymph nodes. Chest Wall: Unremarkable. Bones: Visualized osseous structures appear intact without acute fracture or focal destructive lesion. No acute compression fractures of the imaged spine. Age-indeterminate but likely chronic compression deformity of the superior endplate of T6. Lungs and Pleura: No pneumothorax or pleural effusions. No acute airspace disease. No septal thickening or nodularity. No suspicious pulmonary nodules. A few small subpleural micro nodules are visualized in the left hemithorax. Heart: Heart size is normal. No pericardial effusion. Multivessel atherosclerotic calcifications of the coronary arteries. Thoracic Vessels: The aorta and pulmonary arteries demonstrate normal size. Mediastinum and Teresa: No enlarged lymph nodes. Esophagus: No wall thickening. No hiatal hernia. Upper Abdomen: Visualized upper abdomen solid organs and bowel loops appear normal. IMPRESSION: No suspicious pulmonary nodules. LUNG-RADS 2; continued annual screening, if eligible. Clinically Significant Non-pulmonary Findings: Moderate coronary atherosclerosis. Dictated by: Howie Cano M.D. on 06/12/2024 at 11:47 Approved by: Howie Cano M.D. on 06/12/2024 at 11:56
== END ==
PROVIDERS: Family Provider Family Medicine; PCP Registered Nurse; Referring Provider Registered Nurse; Visit Provider Registered Nurse
DX: F17.210 Nicotine dependence, cigarettes, uncomplicated (principal); Z12.2 Encounter for screening for malignant neoplasm of respiratory organs; I25.10 Atherosclerotic heart disease of native coronary artery without angina pectoris
CPT/HCPCS: 71271